=== PATIENT | female | born 1990 | race Two or more races ===

== ENCOUNTER 2016-10-19 16:28 | Emergency (ER) | payer MEDICAID ==
[~2016-10-19] VITALS: Ht 165.1 cm; Wt 91.0 kg
[2016-10-19] MEDS ORDERED: ACETAMINOPHEN 325MG TABLET PO ONE (21:15)
[2016-10-19 21:35] LABS: BASOPHILS % 0.6 % (0.0-2.0); EOSINOPHILS % 3.4 % (0.0-5.0); HEMATOCRIT. 38.9 % (36.0-48.0); HEMOGLOBIN. 13.2 g/dL (12.0-16.0); LYMPHOCYTES % 35.3 % (20.0-50.0); MEAN CORPUSCULAR HEMOGLOBIN 30.5 pg (28.0-32.0); MEAN CORPUSCULAR HGB CONC 33.8 g/dL (31.0-37.0); MEAN CORPUSCULAR VOLUME 90.2 fL (81.0-99.0); MEAN PLATELET VOLUME 9.6 fl (7.4-10.4); MONOCYTES % 4.8 % (2.0-8.0); NEUTROPHILS % 55.9 % (40.0-76.0); PLATELET 268 x1000/uL (130-400); RED BLOOD CELL COUNT 4.31 mill/uL (4.2-5.4); RED CELL DISTRIBUTION WIDTH 14.2 % (11.6-14.6); WHITE BLOOD COUNT 12.6 x1000/uL (4.5-11.0)
[2016-10-19 21:42] LABS: CHLORIDE 106 mEq/L (98-107); INDEX HEMOLYSI 1 (1-3); INDEX ICTERIC 1 (1-4); INDEX LIPEMIC 1 (1-3)
[2016-10-19 21:43] LABS: CALCIUM 8.2 mg/dL (8.5-10.1)
[2016-10-19 21:44] LABS: ANION GAP 14; CARBON DIOXIDE 24 mEq/L (21-32); UREA NITROGEN BLOOD 9 mg/dL (7-21)
[2016-10-19 21:52] LABS: B-HCG QUANTITATIVE 74 mIU/mL (<3); eGFR > 60 mL/min (>60)
[2016-10-19] MEDS ORDERED: RHO(D) IMMUNE GLOBULIN 300 MCG/SYR IM ONE (23:45)
[2016-10-19 23:57] LABS: CLARITY URINE CLOUDY (CLEAR); COLOR URINE RED (YELLOW); GLUCOSE URINE NEGATIVE (NEGATIVE); KETONES URINE NEGATIVE (NEGATIVE); LEUKOCYTE ESTERASE URINE 1+ (NEGATIVE); NITRITE URINE NEGATIVE (NEGATIVE); OCCULT BLOOD URINE 3+ (NEGATIVE); PH URINE 8.5 (4.5-8.0); PROTEIN URINE 2+ (NEGATIVE); SPECIFIC GRAVITY URINE 1.024 (1.005-1.030)
[2016-10-20 00:39] LABS: SQUAMOUS EPITHELIAL CELL URINE FEW /lpf (RARE/1+)
[2016-10-20 00:42] LABS: BACTERIA URINE 1+; RBC URINE 50-100 /hpf (0-2)
[2016-10-20 01:15] VITALS: BP 119/74
== END 2016-10-20 01:15 | disposition home or self-care (01) ==
LOC: ER 16:30
DX: O23.41 Unspecified infection of urinary tract in pregnancy, first trimester (principal); Z3A.01 Less than 8 weeks gestation of pregnancy
CPT/HCPCS: 36415; 36430; 76830; 76856; 80048; 81001; 81025; 84702; 85025; 86850; 86900; 90384; 90385; 96372; 99285